=== PATIENT | female | born 1940 | race Two or more races ===

== ENCOUNTER 2019-01-27 06:54 | Outpatient (CLI) | payer MEDICARE, MEDICAID ==
[2019-01-27] MEDS ORDERED: REGADENOSON 0.4 MG/5 ML SYRINGE ONE (07:37)
== END 2019-01-27 23:59 | disposition home or self-care (01) ==
LOC: CFH 06:54
PROVIDERS: ATTEND Internal Medicine Cardiovascular Disease
DX: I08.1 Rheumatic disorders of both mitral and tricuspid valves (principal); R94.31 Abnormal electrocardiogram [ECG] [EKG]; I10 Essential (primary) hypertension
CPT/HCPCS: 78452; 93017; 93306; A9502; J2785

== ENCOUNTER → 2020-04-05 | Outpatient (CLI) | payer MEDICARE, MEDICAID | END | disposition home or self-care (01) | LOC: CVU 09:44 | PROVIDERS: ATTEND Internal Medicine Cardiovascular Disease | DX: I08.1 Rheumatic disorders of both mitral and tricuspid valves (principal); R94.31 Abnormal electrocardiogram [ECG] [EKG] | CPT/HCPCS: 93306 ==

== ENCOUNTER → 2020-11-16 | Outpatient (CLI) | payer MEDICARE, MEDICAID ==
[~2020-11-16] MED LIST: OMNIPAQUE 350 MG/ML, 100ML BOTTLE ONE
== END | disposition home or self-care (01) ==
LOC: CFH 12:20
PROVIDERS: ATTEND Surgery
DX: C4A.62 Merkel cell carcinoma of left upper limb, including shoulder (principal); E27.8 Other specified disorders of adrenal gland
CPT/HCPCS: 71260; 74177; 82565; Q9967

== ENCOUNTER 2020-11-24 07:31 | Day surgery (SDC) | payer MEDICARE, MEDICAID ==
[~2020-11-24] VITALS: Ht 152.4 cm; Wt 44.2 kg
[2020-11-24] MEDS ORDERED: CHLORHEXIDINE 15 ML UDC ONE (08:12)
[2020-11-24 08:15] VITALS: BP 147/74
[2020-11-24] MEDS ORDERED: HYDR-826 PO (08:28)
[2020-11-24] MEDS ORDERED: DULA0.75 SC (08:28)
[2020-11-24] MEDS ORDERED: EMPA10TA PO (08:28)
[2020-11-24] MEDS ORDERED: AMLO-211 PO (08:28)
[2020-11-24] MEDS ORDERED: METF500T17 PO (08:28)
[2020-11-24] MEDS ORDERED: MECL-101 PO (08:28)
[2020-11-24] MEDS ORDERED: LOVA20TA2 PO (08:28)
[2020-11-24] MEDS ORDERED: ATEN100T PO (08:28)
[2020-11-24] MEDS ORDERED: ASPI81TA45 PO (08:28)
[2020-11-24] MEDS ORDERED: ALEN70TA77 PO (08:28)
[2020-11-24] MEDS ORDERED: SITA100T PO (08:28)
[2020-11-24] MEDS ORDERED: GLIM4TAB8 PO (08:28)
[2020-11-24] MEDS ORDERED: LISI40TA9 PO (08:28)
[2020-11-24] MEDS ORDERED: CHLORHEXIDINE 15 ML UDC PO ONE (08:30)
[2020-11-24] MEDS ORDERED: LACTATED RINGERS 1,000 ML IV SCH (08:30)
[2020-11-24 09:01] LABS: BASOPHILS % (AUTO) 0 % (0-1); EOSINOPHILS % (AUTO) 4 % (1-7); LYMPHOCYTES % (AUTO) 25 % (22-44); MEAN CORPUSCULAR HEMOGLOBIN 28.8 pg (27.0-34.8); MEAN CORPUSCULAR HGB CONC 33.2 g/dL (32.4-35.8); MEAN PLATELET VOLUME 7.9 fL (7.4-10.4); MONOCYTES % (AUTO) 8 % (2-9); NEUTROPHILS % (AUTO) 63 % (42-75); PLATELET COUNT 332 x10^3/uL (130-400); RED BLOOD COUNT 5.24 x10^6/uL (3.82-5.3); RED CELL DISTRIBUTION WIDTH 13.5 % (9.6-15.2)
[2020-11-24 09:12] LABS: INTERNATIONAL NORMALIZED RATIO 0.96 (0.93-1.1); PROTHROMBIN TIME 10.3 Seconds (9.6-11.5)
[2020-11-24 09:14] LABS: ALANINE AMINOTRANSFERASE 28 U/L (12-78); ALBUMIN 3.6 g/dL (3.4-5.0); ANION GAP 7 mmol/L (5-15); CALCIUM 9.4 mg/dL (8.5-10.1); CHLORIDE 103 mmol/L (98-107)
[2020-11-24 09:16] LABS: ALKALINE PHOSPHATASE 82 U/L (45-117); BILIRUBIN,TOTAL 0.3 mg/dL (0.2-1.0); CREATININE 0.72 mg/dL (0.55-1.02); TOTAL PROTEIN 7.8 g/dL (6.4-8.2)
[2020-11-24] MEDS ORDERED: FENTANYL PF 100 MCG/2ML ONE ×2 (09:44→12:46)
[2020-11-24] MEDS ORDERED: BUPIVACAINE/PF 0.5% ONE (10:33)
[2020-11-24] MEDS ORDERED: EPHEDRINE 50 MG/ML, 1ML ONE (10:43)
[2020-11-24] MEDS ORDERED: BUPIVACAINE/PF-EPI 0.5% 1:200K INFIL ONE (11:04)
[2020-11-24] MEDS ORDERED: HYDROmorphone 1 MG/ML, 1ML INJ IVPush PRN (11:30)
[2020-11-24] MEDS ORDERED: OXYcodone 5 MG/5 ML ORAL.SOL UDC PO PRN (11:30)
[2020-11-24] MEDS ORDERED: PROMETHAZINE 25 MG/ML, 1ML IVPush PRN (11:30)
[2020-11-24] MEDS ORDERED: FENTANYL PF 100 MCG/2ML IV PRN (11:30)
[2020-11-24] MEDS ORDERED: LABETALOL 5MG/ML, 20ML IV PRN (11:30)
[2020-11-24] MEDS ORDERED: ACETAMINOPHEN 325 MG TABLET PO PRN (11:30)
[2020-11-24] MEDS ORDERED: CEFAZOLIN 1,000 MG ONE (11:39)
[2020-11-24] MEDS ORDERED: DEXAMETHASONE 4 MG/ML, 1ML ONE (11:39)
[2020-11-24] MEDS ORDERED: LIDOCAINE-MPF 2% ,5ML ONE (11:39)
[2020-11-24] MEDS ORDERED: PROPOFOL 10 MG/ML, 20ML ONE (11:39)
[2020-11-24] MEDS ORDERED: ONDANSETRON 2MG/ML, 2ML ONE (11:39)
[2020-11-24] MEDS ORDERED: TRAM-47 PO (12:24)
[2020-11-24] MEDS ORDERED: OXYcodone 5 MG/5 ML ORAL.SOL UDC ONE (12:46)
[2020-11-24] MEDS ORDERED: ACETAMINOPHEN 650 MG/20.3 ML UDC ONE (12:50)
== END 2020-11-24 14:18 | disposition home or self-care (01) ==
LOC: OUT 07:31 → EDSTATUS 11:00 → OUT 14:18
PROVIDERS: ATTEND Surgery
DX: C76.41 Malignant neoplasm of right upper limb (principal); C77.3 Secondary and unspecified malignant neoplasm of axilla and upper limb lymph nodes; L90.5 Scar conditions and fibrosis of skin; I10 Essential (primary) hypertension; E11.9 Type 2 diabetes mellitus without complications; E78.5 Hyperlipidemia, unspecified; M81.0 Age-related osteoporosis without current pathological fracture; Z20.822 Contact with and (suspected) exposure to COVID-19; Z79.01 Long term (current) use of anticoagulants; Z79.82 Long term (current) use of aspirin; Z79.84 Long term (current) use of oral hypoglycemic drugs; Z79.899 Other long term (current) drug therapy
CPT/HCPCS: 14020; 38525; 38792; 80053; 82962; 85025; 85610; 87635; 88307; 93005; A9541; J0690; J1100; J2405; J2704; J3010; J7120

== ENCOUNTER 2020-12-26 09:36 | Outpatient (CLI) | payer MEDICARE, MEDICAID ==
[~2020-12-26 09:36] MED LIST changes: +ALEN70TA77 PO; +AMLO-211 PO; +ASPI81TA45 PO; +ATEN100T PO; +DULA0.75 SC; +EMPA10TA PO; +GLIM4TAB8 PO; +HYDR-826 PO; +LISI40TA9 PO; +LOVA20TA2 PO; +MECL-101 PO; +METF500T17 PO; -OMNIPAQUE 350 MG/ML, 100ML BOTTLE ONE; +SITA100T PO; +TRAM-47 PO
== END 2020-12-26 23:59 | disposition home or self-care (01) ==
LOC: CFH 09:36
PROVIDERS: ATTEND Surgery
DX: C4A.62 Merkel cell carcinoma of left upper limb, including shoulder (principal); E27.8 Other specified disorders of adrenal gland; D25.9 Leiomyoma of uterus, unspecified
CPT/HCPCS: 74176